=== PATIENT | female | born 1965 | race Caucasian/White ===

== ENCOUNTER → 2017-05-11 | Outpatient (CLI) | payer BC ==
[~2017-05-11] MED LIST: HYDR25TA6 PO; LEVO137T2 PO; MULT-672 PO; MULT1TAB60 PO; MV W1TAB2 PO; antibiotic PO
[2017-05-11 09:45] LABS: HEMATOCRIT 41.2 % (34.6-47.8); HEMOGLOBIN 14.3 g/dL (11.7-16.4); WHITE BLOOD COUNT 5.5 x10^3/uL (3.4-10)
[2017-05-11 09:58] LABS: ASPARTATE AMINO TRANSFERASE 21 U/L (15-37); BLOOD UREA NITROGEN 19 mg/dL (7-18)
== END | disposition home or self-care (01) ==
LOC: STAR 08:29
PROVIDERS: ATTEND Orthopaedic Surgery Orthopaedic Surgery of the Spine
DX: Z01.818 Encounter for other preprocedural examination (principal); M48.061 Spinal stenosis, lumbar region without neurogenic claudication; M71.38 Other bursal cyst, other site
CPT/HCPCS: 36415; 71020; 80053; 81003; 85025; 93005

== ENCOUNTER 2017-05-16 05:56 | Inpatient (IN) | payer BC ==
[~2017-05-16] VITALS: Ht 167.6 cm; Wt 99.3 kg
[2017-05-16] MEDS ORDERED: LACTATED RINGERS 1,000 ML IV SCH (06:36)
[2017-05-16 06:42] VITALS: BP 130/92
[2017-05-16] MEDS ORDERED: BACITRACIN 50,000 UNIT ONE (07:21)
[2017-05-16] MEDS ORDERED: EPINEPHRINE 1 MG/ML, 1ML ONE ×2 (07:21→09:03)
[2017-05-16] MEDS ORDERED: THROMBIN 5,000 UNIT VIAL TP ONE (07:21)
[2017-05-16] MEDS ORDERED: BUPIVACAINE/PF 0.5% ONE ×2 (07:21→09:03)
[2017-05-16] MEDS ORDERED: VANCOMYCIN 1,000 MG ONE (07:21)
[2017-05-16] MEDS ORDERED: TRANEXAMIC ACID 100 MG/ML, 10ML ONE ×2 (07:21)
[2017-05-16] MEDS ORDERED: CLINDAMYCIN 150 MG/ML, 6ML ONE (07:35)
[2017-05-16] MEDS ORDERED: CEFAZOLIN 1,000 MG ONE (07:41)
[2017-05-16] MEDS ORDERED: FENTANYL PF 250 MCG/5ML ONE (07:41)
[2017-05-16] MEDS ORDERED: ACETAMINOPHEN 650 MG SUPP PR PRN (08:00)
[2017-05-16] MEDS ORDERED: DIAZEPAM 5 MG TABLET PO PRN (08:00)
[2017-05-16] MEDS ORDERED: BISACODYL 10 MG SUPP PR PRN (08:00)
[2017-05-16] MEDS ORDERED: PHARMACY MAY ADJ FOR RENAL FX MC PRN (08:00)
[2017-05-16] MEDS ORDERED: SENNA/DOCUSATE TABLET PO PRN (08:00)
[2017-05-16] MEDS ORDERED: OXYcodone/APAP 5/325MG TABLET PO PRN (08:00)
[2017-05-16] MEDS ORDERED: CEFAZOLIN PMX 1GM/50ML 50 ML IVPB SCH (08:00)
[2017-05-16] MEDS ORDERED: MAGNESIUM HYDROXIDE 8%, 30ML UDC PO PRN (08:00)
[2017-05-16] MEDS ORDERED: HYDROcodone/APAP 10/325 MG TABLET PO PRN (08:00)
[2017-05-16] MEDS ORDERED: LABETALOL 5MG/ML, 20ML IV PRN (08:30)
[2017-05-16] MEDS ORDERED: METOPROLOL 1 MG/ML, 5ML IV PRN (08:30)
[2017-05-16] MEDS ORDERED: PROMETHAZINE 25 MG/ML, 1ML IV PRN (08:30)
[2017-05-16] MEDS ORDERED: ALBUTEROL SULFATE 2.5 MG/3 ML NPPB PRN (08:30)
[2017-05-16] MEDS ORDERED: ACETAMINOPHEN 325 MG TABLET PO PRN (08:30)
[2017-05-16] MEDS ORDERED: OXYcodone 5 MG/5 ML ORAL.SOL UDC PO PRN (08:30)
[2017-05-16] MEDS ORDERED: HYDROmorphone 1 MG/ML, 1ML IV PRN (08:30)
[2017-05-16] MEDS ORDERED: EPHEDRINE 50 MG/ML, 1ML IVPush PRN (08:30)
[2017-05-16] MEDS ORDERED: MEPERIDINE/PF 25MG/0.5ML IVPush PRN (08:30)
[2017-05-16] MEDS ORDERED: hydrALAzine 20 MG/ML, 1ML IV PRN (08:30)
[2017-05-16] MEDS ORDERED: DIAZEPAM 5 MG/ML, 2ML IVPush PRN (08:30)
[2017-05-16] MEDS ORDERED: ONDANSETRON 2MG/ML, 2ML IVPush PRN (08:30)
[2017-05-16] MEDS: HYDROCHLOROTHIAZIDE 25 MG TABLET PO SCH ×2 (09:00→14:11)
[2017-05-16] MEDS ORDERED: BUPIVACAINE/PF-EPI 0.5% 1:200K INFIL ONE (10:40)
[2017-05-16] MEDS ORDERED: BUPIVACAINE LIPOSOME/PF INFIL ONE ×2 (10:40→13:12)
[2017-05-16] MEDS ORDERED: ACETAMINOPHEN 650 MG/20.3 ML UDC ONE (11:28)
[2017-05-16] MEDS ORDERED: OXYcodone 5 MG/5 ML ORAL.SOL UDC ONE (11:28)
[2017-05-16] MEDS ORDERED: FENTANYL PF 100 MCG/2ML ONE (11:33)
[2017-05-16] MEDS: FENTANYL PF 100 MCG/2ML IV PRN ×2 (11:35→11:55)
[2017-05-16] MEDS ORDERED: ACETAMINOPHEN 500 MG TABLET ONE (14:09)
[2017-05-16] MEDS: ACETAMINOPHEN 500 MG TABLET PO PRN ×2 (14:11→20:26)
[2017-05-16 14:13] VITALS: BP 142/95
[2017-05-16] MEDS: ONDANSETRON ODT 4 MG PO PRN ×2 (16:23→23:16)
[2017-05-16] MEDS ORDERED: PROPOFOL 10 MG/ML, 50ML ONE (17:23)
[2017-05-16] MEDS ORDERED: SUCCINYLCHOLINE 20 MG/ML, 10ML ONE (17:23)
[2017-05-16] MEDS ORDERED: KETAMINE 10 MG/ML, 20ML ONE (17:23)
[2017-05-16] MEDS ORDERED: PROPOFOL 10 MG/ML, 20ML ONE (17:23)
[2017-05-16] MEDS ORDERED: ONDANSETRON 2MG/ML, 2ML ONE (17:23)
[2017-05-16 19:07] VITALS: BP 124/87
[2017-05-16] MEDS: CLINDAMYCIN PMX 900MG/50ML 50 ML IV SCH (21:39)
[2017-05-16 23:17] VITALS: BP 115/79
[2017-05-17] MEDS ORDERED: PROCHLORPERAZINE 5 MG/ML, 2ML IM PRN (00:30)
[2017-05-17] MEDS: HYDROmorphone 1 MG/ML, 1ML IVPush PRN ×2 (02:17→07:19)
[2017-05-17 03:33] VITALS: BP 100/61
[2017-05-17] MEDS: ONDANSETRON ODT 4 MG PO PRN ×3 (04:46→19:15)
[2017-05-17] MEDS: ACETAMINOPHEN 500 MG TABLET PO PRN ×4 (04:47→23:13)
[2017-05-17] MEDS: LEVOTHYROXINE 137 MCG TABLET PO SCH (05:55)
[2017-05-17 08:12] VITALS: BP 110/69
[2017-05-17] MEDS: CLINDAMYCIN PMX 900MG/50ML 50 ML IV SCH ×2 (08:52→20:53)
[2017-05-17] MEDS: HYDROmorphone 2MG TABLET PO PRN ×2 (13:15→20:13)
[2017-05-17 14:00] VITALS: BP 109/73
[2017-05-17 19:29] VITALS: BP 115/80
[2017-05-18] MEDS: HYDROmorphone 2MG TABLET PO PRN ×4 (00:09→12:12)
[2017-05-18 01:33] VITALS: BP 109/69
[2017-05-18] MEDS: ACETAMINOPHEN 500 MG TABLET PO PRN ×2 (05:24→11:29)
[2017-05-18] MEDS: LEVOTHYROXINE 137 MCG TABLET PO SCH (06:31)
[2017-05-18] MEDS: HYDROCHLOROTHIAZIDE 25 MG TABLET PO SCH (08:49)
[2017-05-18] MEDS: CLINDAMYCIN PMX 900MG/50ML 50 ML IV SCH (08:49)
[2017-05-18 11:28] VITALS: BP 114/76
[2017-05-18 12:41] VITALS: BP 131/83
== END 2017-05-18 13:20 | disposition home or self-care (01) | DRG 460 ==
LOC: ORIP 05:56 → 4NOR 12:28 → DCLOUNGE 05-18 12:54
PROVIDERS: ADMIT Orthopaedic Surgery Orthopaedic Surgery of the Spine; ATTEND Orthopaedic Surgery Orthopaedic Surgery of the Spine
PROC: 01NB0ZZ Release Lumbar Nerve, Open Approach (ICD-10-PCS; 2017-05-16)
PROC: 4A11X4G Monitoring of Peripheral Nervous Electrical Activity, Intraoperative, External Approach (ICD-10-PCS; 2017-05-16)
PROC: 0SG00A0 Fusion of Lumbar Vertebral Joint with Interbody Fusion Device, Anterior Approach, Anterior Column, Open Approach (ICD-10-PCS; principal; 2017-05-16 07:45)
DX: M48.061 Spinal stenosis, lumbar region without neurogenic claudication (principal); Z88.0 Allergy status to penicillin
CPT/HCPCS: 72100; C1713; C1767; C9290; J0171; J0690; J1170; J2405; J2704; J3010; J3370; J3490; Q0162; C1760; C1762; J0330; J0780; J7120

== ENCOUNTER → 2017-11-19 | Outpatient (CLI) | payer BC | END | disposition home or self-care (01) | LOC: CFH 07:32 | PROVIDERS: ATTEND Nurse Practitioner Family | DX: Z12.31 Encounter for screening mammogram for malignant neoplasm of breast (principal) | CPT/HCPCS: 77067 ==

== ENCOUNTER 2020-02-13 12:42 | Outpatient (CLI) | payer OTHER ==
[~2020-02-13 12:42] MED LIST changes: +MULT-449 PO; -MULT1TAB60 PO
== END 2020-02-13 23:59 | disposition home or self-care (01) ==
LOC: CFH 12:42
PROVIDERS: ATTEND Nurse Practitioner Family
DX: Z12.31 Encounter for screening mammogram for malignant neoplasm of breast (principal)
CPT/HCPCS: 77067